=== PATIENT | female | born 1950 | race Caucasian/White ===

== ENCOUNTER 2016-10-16 15:39 | Outpatient (CLI) | payer MEDICARE, BC ==
--- NOTE | 2016-10-16 17:54 | CT Report ---
EXAM: CT HEAD EXAM DATE: 10/16/2016 04:38 p.m. CLINICAL HISTORY: Headache, she feels she has an aneurysm. COMPARISON: None. TECHNIQUE: Multiaxial CT images were obtained from the foramen magnum to the vertex. IV contrast: Non e. Reformats: Coronal. In accordance with CT protocol optimization, one or more of the following dose reduction techniques w ere utilized for this exam: automated exposure control, adjustment of mA and/or KV based on patient s ize, or use of iterative reconstructive technique. FINDINGS: Parenchyma: No intraparenchymal hemorrhage. No evidence of mass, midline shift, or CT findings of inf arction. Maxwell-white differentiation is distinct. Large wedge-shaped area of encephalomalacia predomin antly affecting the left frontal lobe noted. Extraaxial Spaces: Normal for age. No subdural or epidural collections identified. Ventricles: Ex vacuo dilation of the left frontal horn. No midline shift is noted. Sinuses: Imaged paranasal sinuses, orbits, and mastoids show no significant abnormality. Bones: No evidence of fracture or calvarial defect. Other: No concerning aneurysms noted on this noncontrast enhanced head CT. IMPRESSION: 1. No acute intracranial abnormality. 2. 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 3. No aneurysm noted on this noncontrast enhanced CT. Patient may benefit from a contrast enhanced CT A or MRA on a non-emergent basis. [facility] Referring Provider Line: [phone] SITE ID: [id number]
== END 2016-10-16 15:40 | disposition home or self-care (01) ==
LOC: DI 15:39
PROVIDERS: ATTEND Nurse Practitioner Family
DX: G93.89 Other specified disorders of brain (principal)
CPT/HCPCS: 70450

== ENCOUNTER 2017-02-16 14:52 | Outpatient (CLI) | payer MEDICARE, BC ==
--- NOTE | 2017-02-17 16:00 | DEXA Report ---
DEXA SCAN: 02/16/2017 CLINICAL INDICATION: Postmenopausal. TECHNIQUE: Dual energy x-ray absorptiometry (DXA) was performed on a [facility] system. Regions measured are the AP spine, femoral neck, and, if needed, forearm. COMPARISON: None. In accordance with the International Society for Clinical Densitometry (ISCD) guidelines, data from previous exams may be reanalyzed using current recommendations and techniques. This is done to allow a more accurate basis for comparison with the current study. FINDINGS Data for the lumbar spine is as follows: REGION BMD (g/cm/cm) T-SCORE Z-SCORE L1 1.412 2.4 4.2 L2 1.641 3.7 5.5 L3 1.675 4.0 5.8 L4 1.573 3.1 5.0 TOTAL 1.579 3.3 5.2 NOTE: All evaluable vertebrae are used for classification. Data for the hip is as follows: REGION BMD (g/cm/cm) T-SCORE Z-SCORE Neck 1.176 1.0 2.6 TOTAL 1.279 2.2 3.6 NOTE: The femoral neck or total proximal femur, whichever is lowest, is used for classification. IMPRESSION: THE WHO CLASSIFICATION BASED ON THE INTERNATIONAL REFERENCE STANDARD IS NORMAL. THE FRACTURE RISK IS NOT INCREASED. RECOMMENDATION: Patients with diagnosis of osteoporosis or osteopenia should have regular bone mineral density assessment. For those eligible for Medicare, routine testing is allowed once every 2 years. Testing frequency can be increased for patients who have rapidly progressing disease or for those who are receiving medical therapy to restore bone mass. COMMENT: World Health Organization (WHO) definitions for osteoporosis and osteopenia: NORMAL BMD: T-score at -1.0 or higher, fracture risk is low. OSTEOPENIA BMD: T-score between -1.0 and -2.5, fracture risk is increased. OSTEOPOROSIS BMD: T-score at -2.5 or lower, fracture risk high. National Osteoporosis Foundation recommends: 1. Obtain adequate dietary calcium (at least 1200 mg per day) and vitamin D (400 -800 international units per day). 2. Participate, as appropriate, in regular weightbearing and muscle- strengthening exercise. 3. Avoid tobacco use and reduce alcohol and caffeine intake. 4. For more detailed information see the website at www.NOF.org. MTDD
== END 2017-02-16 14:53 | disposition home or self-care (01) ==
LOC: DI 14:52
PROVIDERS: ATTEND Nurse Practitioner Family
DX: Z13.820 Encounter for screening for osteoporosis (principal); N95.8 Other specified menopausal and perimenopausal disorders
CPT/HCPCS: 77080

== ENCOUNTER 2017-02-16 14:53 | Outpatient (CLI) | payer MEDICARE, BC ==
--- NOTE | 2017-02-19 08:52 | Mammography Report ---
DIGITAL SCREENING MAMMOGRAM: 02/16/2017 CLINICAL INDICATION: A 66-year-old nulliparous patient with history of benign biopsy, history of imp lants, for screening. TECHNIQUE: Routine CC and MLO projections were obtained of the breasts as well as bilateral implant displaced views. FINDINGS: The breasts again demonstrate heterogeneously dense fibroglandular parenchyma bilaterally. Coarse, typically benign calcifications are present. Bilateral subpectoral silicone implants are s table. No suspicious masses, clustered microcalcifications, or regions of architectural distortion a re identified. IMPRESSION: BENIGN FINDINGS. RECOMMENDATION: Routine annual screening unless otherwise clinically indicated. BIRADS CATEGORY 2 - BENIGN FINDINGS. STANDARD QUALIFYING STATEMENTS 1. This examination was reviewed with the aid of Computer-Aided Detection (CAD). 2. A negative or benign imaging report should not delay biopsy if clinically suspicious findings are present. Consider surgical consultation if warranted. More than 5% of cancers are not identified by i maging. 3. Dense breasts may obscure an underlying neoplasm. JOB #: [id number] EXT JOB #:[id number]
== END 2017-02-16 14:54 | disposition home or self-care (01) ==
LOC: DI 14:53
PROVIDERS: ATTEND Nurse Practitioner Family
DX: Z12.31 Encounter for screening mammogram for malignant neoplasm of breast (principal); Z98.82 Breast implant status
CPT/HCPCS: 77067

== ENCOUNTER 2017-07-14 11:27 | Outpatient (CLI) | payer MEDICARE, BC ==
[2017-07-14 18:02] LABS: T4 (THYROXINE) 9.06 ug/dL (6.09-12.23)
[2017-07-14 18:08] LABS: THYROID STIMULATING HORMONE 0.33 uIU/mL (0.34-5.60)
[2017-07-14 18:09] LABS: FREE T4 (FREE THYROXINE) 1.24 ng/dL (0.58-1.64)
== END 2017-07-14 11:28 | disposition home or self-care (01) ==
LOC: LAB.F 11:27
PROVIDERS: ATTEND Nurse Practitioner Family
DX: I10 Essential (primary) hypertension (principal); R53.83 Other fatigue; E06.3 Autoimmune thyroiditis; R63.5 Abnormal weight gain
CPT/HCPCS: 36415; 84436; 84439; 84443; 84481; 86376; 86800

== ENCOUNTER 2017-08-26 15:00 | Outpatient (CLI) | payer MEDICARE, BC ==
--- NOTE | 2017-08-26 17:50 | Ultrasound Report ---
THYROID ULTRASOUND: 08/26/2017 INDICATION: Hypothyroidism, fullness of left lobe on physical examination. TECHNIQUE: Real-time scanning was performed with food service sales representatives static images obtained. FINDINGS: The right lobe of the thyroid measures 2.4 x 1.0 x 0.9 cm, and the left lobe measures 2.5 x 0.6 x 0.5 cm. The isthmus measures 1 mm. There is a 9 mm x 5 mm x 4 mm cyst in the posterior right lobe. There is a 2 mm x 2 mm x 1 mm echogenic nodule in the central portion of the left lobe. No adenopathy is appreciated. IMPRESSION: DIMINUTIVE THYROID, WITH A SMALL CYST ON THE RIGHT AND A TINY ECHOGENIC NODULE ON THE LEFT. NO SUSPICIOUS THYROID NODULE WAS IDENTIFIED. NO ADENOPATHY. TD: 08/26/2017 17:49 ARIELLE
== END 2017-08-26 15:01 | disposition home or self-care (01) ==
LOC: DI 15:00
PROVIDERS: ATTEND Registered Nurse
DX: E04.2 Nontoxic multinodular goiter (principal); E03.9 Hypothyroidism, unspecified
CPT/HCPCS: 76536

== ENCOUNTER 2017-10-15 14:23 | Outpatient (CLI) | payer MEDICARE, BC ==
--- NOTE | 2017-10-16 05:45 | XRAY Report ---
Procedure Date: 10/15/2017 Accession Number: [id number] / [id number] Procedure: XRS - Lumbar Spine 2 View CPT Code: FULL RESULT: EXAM: Lumbar Spine 2 View DATE: 10/15/2017 2:39 PM CLINICAL HISTORY: BACK PAIN COMPARISON: 09/03/2009 TECHNIQUE: 3 views. FINDINGS: Alignment: Minimal degenerative scoliosis of the thoracolumbar junction. Bones: Five gnc-elj-wzirbeb lumbar vertebral bodies are present. No fractures or bone lesions. Disks: Degenerative disc disease, worst at T12-L1. Facets: Mild facet arthropathy. Sacroiliac Joints: Unremarkable. Soft Tissues: Normal. The visualized bowel gas pattern is normal. IMPRESSION: Degenerative changes, with mild degenerative scoliosis. No evidence of compression fracture. [facility]
== END 2017-10-15 14:24 | disposition home or self-care (01) ==
LOC: DI.S 14:23
PROVIDERS: ATTEND Registered Nurse
DX: M47.896 Other spondylosis, lumbar region (principal); M51.36 Other intervertebral disc degeneration, lumbar region; M51.35 Other intervertebral disc degeneration, thoracolumbar region; M41.85 Other forms of scoliosis, thoracolumbar region
CPT/HCPCS: 72100

== ENCOUNTER 2018-03-11 12:59 | Outpatient (CLI) | payer MEDICARE, OTHER ==
--- NOTE | 2018-03-11 16:33 | Mammography Report ---
Reason: IMPLANTS, NIPPLE TENDERNESS - BILAT Procedure Date: 03/11/2018 Accession Number: [id number] / [id number] Procedure: LUIS - Diagnostic Dig Bilat CPT Code: FULL RESULT: EXAM: Diagnostic Dig Bilat DATE: 03/11/2018 1:42 PM CLINICAL HISTORY: 68 year-old on hormone replacement with six-month history of bilateral breast pain greatest in the nipple regions. History of bilateral implants and a benign breast biopsy (unsure which side). No reported personal or family history of breast cancer TECHNIQUE: Bilateral CC and MLO views were obtained. Real-time bilateral ultrasound is performed by both the technologist and radiologist. COMPARISON: 02/16/2017 through 04/04/2012 FINDINGS: The breasts demonstrate heterogeneously dense fibroglandular parenchyma bilaterally. There are intact subpectoral saline implants with moderate capsular calcification bilaterally. There are no suspicious masses, calcifications or areas of distortion bilaterally. There is no mammographic finding in either breast to correlate with the bilateral breast pain, greatest at the nipple. Ultrasound findings: Bilateral breast ultrasound is performed to the nipple and periareolar breast at both technologist and radiologist. Only normal tissues are noted. At the time of imaging exam, patient is noted to have moderate diffuse breast tenderness IMPRESSION: Bilateral symmetric breast pain consistent with physiologic pain. Stable imaging findings. Benign. BI-RADS Category 2 RECOMMENDATION: Routine annual screening unless otherwise clinically indicated. BI-RADS CATEGORY 2: Benign findings STANDARD QUALIFYING STATEMENTS: 1. This examination was not reviewed with the aid of Computer-Aided Detection (CAD). 2. A negative or benign imaging report should not preclude biopsy if clinically suspicious findings are present. 3. Dense breasts may obscure an underlying neoplasm. 4. This examination was reviewed with the aid of 3D breast imaging (tomosynthesis).
== END 2018-03-11 13:00 | disposition home or self-care (01) ==
LOC: DI 12:59
PROVIDERS: ATTEND Registered Nurse
DX: N64.4 Mastodynia (principal); Z98.82 Breast implant status
CPT/HCPCS: 76642; 77066

== ENCOUNTER 2019-11-18 11:49 | Outpatient (CLI) | payer MEDICARE, OTHER ==
[2019-11-18] MEDS ORDERED: IOVERSOL 320 100 ML VIAL IVP ONE ×2 (12:05→14:53)
[2019-11-18] MEDS ORDERED: IOVERSOL 320 50 ML VIAL ONE (12:05)
[2019-11-18] MEDS ORDERED: IOVERSOL 320 50 ML VIAL PO ONE (14:53)
--- NOTE | 2019-11-18 17:03 | CT Report ---
PROCEDURE: Abdomen/Pelvis W INDICATIONS: LT LOWER QUAD PAIN CONTRAST: IV CONTRAST: Optiray 320 ml: 100 PO CONTRAST: Optiray 320 ml50 TECHNIQUE: After the administration of oral and intravenous contrast, 5 mm thick sections acquired from the diap hragms to the symphysis. 5 mm thick coronal and sagittal reformats were acquired. For radiation dos e reduction, the following was used: automated exposure control, adjustment of mA and/or kV accordin g to patient size. COMPARISON: None available. FINDINGS: Image quality: Excellent. ABDOMEN: Lung bases: Lung bases are clear. Heart size is normal. Solid organs: Liver and spleen are normal in size and enhancement. Gallbladder wall does not appear thickened. Biliary system is non dilated. Pancreas enhances normally. No adrenal nodules. Kidn eys demonstrate normal size and enhancement, without hydronephrosis. Peritoneum and bowel: In this patient with this given history, scrutiny is given to the left lower q uadrant and the sigmoid colon. Extensive sigmoid diverticulosis is seen. There is minimal wall thicke rex and hyperenhancement seen, as on series 3 image 62. Minimal surrounding inflammatory changes are seen. No free air or significant free fluid can be seen. No loculated abscess is seen. Bowel loops demonstrate normal wall thickness and caliber. A normal appendix is incidentally noted . Nodes and vessels: No retroperitoneal or mesenteric adenopathy by size criteria. Aorta and inferior vena cava are normal in size. Miscellaneous: No ventral hernias. PELVIS: Genitourinary: Bladder wall thickness is normal. The uterus is atrophic versus partially removed. N o adnexal masses are seen on either side. Miscellaneous: No inguinal hernias or adenopathy. Bones: No suspicious bony lesions. No vertebral body compression fractures. Mild dextroconvex scol iotic curvature is seen. Age-appropriate degenerative changes are seen. IMPRESSION: Mild sigmoid diverticulitis, without findings of perforation or abscess. Reviewed by: Isrrael Vinson MD on 11/18/2019 4:02 PM [facility] Approved by: Isrrael Vinson MD on 11/18/2019 4:02 PM [facility] Station ID: [id number]
== END 2019-11-18 11:50 | disposition home or self-care (01) ==
LOC: DI 11:49
PROVIDERS: ATTEND Registered Nurse
DX: K57.32 Diverticulitis of large intestine without perforation or abscess without bleeding (principal)
CPT/HCPCS: 74177; Q9967

== ENCOUNTER 2020-07-14 08:00 | Outpatient (CLI) | payer MEDICARE, OTHER ==
--- NOTE | 2020-07-14 16:27 | XRAY Report ---
PROCEDURE: Knee 3 View RT INDICATIONS: RIGHT KNEE PAIN TECHNIQUE: 3 views of the right knee(s) were acquired. COMPARISON: None. FINDINGS: Bones: No fractures or dislocations. No suspicious bony lesions. Soft tissues: No joint effusion. No suspicious soft tissue calcifications. IMPRESSION: No acute fracture. No osseous lesion. If symptoms and/or clinical suspicion for patholog y continue, further assessment with repeat plain films, or advanced imaging (e.g., CT, MRI, or bone s can) is recommended for further assessment. Reviewed by: Lino Chino MD on 07/14/2020 4:26 PM PDT Approved by: Lino Chino MD on 07/14/2020 4:26 PM PDT Station ID: [id number]
== END 2020-07-14 23:59 | disposition home or self-care (01) ==
LOC: DI.S 08:00
PROVIDERS: ATTEND Physician Assistant Medical
DX: M25.561 Pain in right knee (principal)

== ENCOUNTER 2021-04-06 07:57 | Outpatient (CLI) | payer MEDICARE, OTHER ==
--- NOTE | 2021-04-06 16:58 | Ultrasound Report ---
PROCEDURE: Abdomen Complete INDICATIONS: ABD PAIN TECHNIQUE: Real-time scanning was performed of the abdominal and retroperitoneal organs, with image documentatio n. COMPARISON: CT abdomen pelvis 11/18/2019, ultrasound abdomen 02/26/2011. FINDINGS: Liver: Liver is normal in size and demonstrates no discrete hepatic mass. Gallbladder: No gallstones, gallbladder wall thickening, or pericholecystic fluid. Biliary ducts: Intrahepatic bile ducts are non-dilated. Extrahepatic bile duct caliber measures 2 m m. Normal is 6-7 mm or less in diameter, or 10 mm or less post-cholecystectomy. Pancreas: Visualized portions of the pancreas are sonographically normal. Spleen: Spleen is normal in size and homogeneous in echotexture. Kidneys: Right kidney measures 10.2 cm long; left kidney measures 11.2 cm long. No hydronephrosis o r definite mass. There is a small echogenic nonshadowing focus within the left kidney measuring up to 0.3 x 0.3 x 0.4 cm within the superior pole. Finding is nonspecific and may represent a possible non shadowing nonobstructing stone. Aorta: Visualized aorta is normal in caliber at less than 3 cm. Iliacs: Proximal common iliac arteries are normal in caliber at less than 2.5 cm. IVC: Intrahepatic inferior vena cava is patent. Miscellaneous: No free abdominal fluid. IMPRESSION: 1. No acute abdominal sonographic abnormality. 2. No evidence of cholelithiasis or cholecystitis. 3. Small nonspecific echogenic focus within the left kidney may represent a possible nonobstructing s tone. Reviewed by: Octavio Coles MD on 04/06/2021 3:57 PM [facility] Approved by: Octavio Coles MD on 04/06/2021 3:57 PM [place] Station ID: [id number]
== END 2021-04-06 07:58 | disposition home or self-care (01) ==
LOC: DI 07:57
PROVIDERS: ATTEND Nurse Practitioner
DX: R10.11 Right upper quadrant pain (principal); R10.30 Lower abdominal pain, unspecified

== ENCOUNTER 2021-07-03 08:00 | Outpatient (CLI) | payer MEDICARE, OTHER ==
--- NOTE | 2021-07-04 17:54 | XRAY Report ---
PROCEDURE: Hips 2V BILAT INDICATIONS: BILATERAL HIP PAIN TECHNIQUE: 2 views of the hip were acquired. COMPARISON: None available at time of interpretation. FINDINGS: Bones: No fractures or dislocations. No suspicious bony lesions. The visualized pelvic ring appear s intact. Moderate axial joint space narrowing with periarticular osteophyte formation. Soft tissues: No suspicious soft tissue calcifications or masses. IMPRESSION: Moderate symmetric hip joint degeneration. Reviewed by: JORGE Oliver on 07/04/2021 5:53 PM PST Approved by: De Horton MD on 07/04/2021 5:53 PM PST Station ID: [id number]
== END 2021-07-03 23:59 | disposition home or self-care (01) ==
LOC: DI.S 08:00
PROVIDERS: ATTEND Physician Assistant Medical
DX: M16.0 Bilateral primary osteoarthritis of hip (principal)

== ENCOUNTER 2021-10-15 14:42 | Outpatient (CLI) | payer MEDICARE, OTHER | END 2021-10-15 14:43 | disposition home or self-care (01) | LOC: RT 14:42 | PROVIDERS: ATTEND Internal Medicine | DX: Z01.810 Encounter for preprocedural cardiovascular examination (principal) | CPT/HCPCS: 93005 ==

== ENCOUNTER 2021-10-16 07:34 | Outpatient (CLI) | payer MEDICARE, OTHER ==
[2021-10-16 14:12] LABS: BASOPHILS # (AUTO) 0.1 10^3/uL (0.0-0.1); BASOPHILS % (AUTO) 1.3 %; EOSINOPHILS # (AUTO) 0.2 10^3/uL (0.0-0.7); EOSINOPHILS % (AUTO) 3.5 %; HCT - HEMATOCRIT 47.4 % (37.0-47.0); HGB - HEMOGLOBIN 15.9 g/dL (12.0-16.0); LYMPHOCYTES # (AUTO) 1.9 10^3/uL (1.5-3.5); LYMPHOCYTES % (AUTO) 32.4 %; MEAN CORPUSCULAR HEMOGLOBIN 30.3 pg (27.0-31.0); MEAN CORPUSCULAR HGB CONC 33.5 g/dL (32.0-36.0); MEAN CORPUSCULAR VOLUME 90.5 fL (81.0-99.0); MEAN PLATELET VOLUME 10.9 fL (7.9-10.8); MONOCYTES # (AUTO) 0.5 10^3/uL (0.0-1.0); MONOCYTES % (AUTO) 8.4 %; NEUTROPHILS # (AUTO) 3.2 10^3/uL (1.5-6.6); NEUTROPHILS % (AUTO) 53.9 %; PLT - PLATELET COUNT 226 10^3/uL (130-450); RED BLOOD COUNT 5.24 10^6/uL (4.20-5.40); RED CELL DISTRIBUTION WIDTH 11.4 % (12.0-15.0); WHITE BLOOD COUNT 5.9 x10^3/uL (4.8-10.8)
[2021-10-16 14:14] LABS: BILIRUBIN,URINE NEGATIVE (NEGATIVE); GLUCOSE, URINE (UA) NEGATIVE (NEGATIVE); KETONES,URINE (UA) NEGATIVE (NEGATIVE); LEUKOCYTE ESTERASE, URINE NEGATIVE (NEGATIVE); NITRITE,URINE NEGATIVE (NEGATIVE); OCCULT BLOOD,URINE NEGATIVE (NEGATIVE); PH,URINE 6.5 PH (5.0-7.5); PROTEIN,URINE NEGATIVE (NEGATIVE); UROBILINOGEN,URINE 0.2 (NORMAL) E.U./dL (NORMAL)
[2021-10-16 14:24] LABS: BACTERIA,URINE None Seen /HPF (None Seen); CLARITY,URINE CLEAR (CLEAR); RBC,URINE 0-5 /HPF (0-5); SQUAMOUS EPITHELIAL CELL,UR RARE Squamous (<= Few); WBC,URINE 0-3 /HPF (0-5)
[2021-10-16 14:35] LABS: ALBUMIN 4.2 g/dL (3.2-5.5); ALBUMIN/GLOBULIN RATIO 1.3 (1.0-2.2); ALKALINE PHOSPHATASE 62 IU/L (42-121); ALT ALANINE AMINOTRANSFERASE 14 IU/L (10-60); AST ASPARTATE AMINOTRANSFERASE 17 IU/L (10-42); BILIRUBIN,TOTAL 0.7 mg/dL (0.2-1.0); BUN - BLOOD UREA NITROGEN 18 mg/dL (6-20); CALCIUM 9.2 mg/dL (8.5-10.3); CARBON DIOXIDE - CO2 28 mmol/L (21-32); CHLORIDE 103 mmol/L (101-111); CHOL/HDL RATIO 4.7 (<4.4); CHOLESTEROL 331 mg/dL; CREATININE 0.9 mg/dL (0.4-1.0); GFR - MDRD 62 (>89); GLUCOSE 91 mg/dL (70-100); HDL CHOLESTEROL 70 mg/dL; LDL CHOLESTEROL,CALCULATED 243 mg/dL; LDL/HDL RATIO 3.5 (<4.4); SODIUM 138 mmol/L (135-145); TOTAL PROTEIN 7.4 g/dL (6.7-8.2); TRIGLYCERIDES 88 mg/dL; VLDL CHOLESTEROL 18 mg/dL
[2021-10-16 14:47] LABS: SLIDE REVIEW? Indicated
[2021-10-16 14:50] LABS: ESTIMATED AVERAGE GLUCOSE 111 mg/dL (70-100); HEMOGLOBIN A1c% 5.5 % (4.27-6.07)
[2021-10-16 15:22] LABS: PLATELET ESTIMATE, MANUAL NORMAL (130-450,000) (NORMAL); PLATELET MORPHOLOGY NORMAL APPEARANCE (NORMAL); RBC MORPHOLOGY (MULTIPLE) NORMAL APPEARANCE (NORMAL); WBC MORPHOLOGY (MULTIPLE) NORMAL APPEARANCE (NORMAL)
[2021-10-17 06:09] LABS: HCV AB <0.1 s/co ratio (0.0-0.9)
== END 2021-10-16 07:35 | disposition home or self-care (01) ==
LOC: LAB.S 07:34
PROVIDERS: ATTEND Internal Medicine
DX: Z01.812 Encounter for preprocedural laboratory examination (principal); E78.2 Mixed hyperlipidemia; N95.9 Unspecified menopausal and perimenopausal disorder; Z11.59 Encounter for screening for other viral diseases; Z13.1 Encounter for screening for diabetes mellitus
CPT/HCPCS: 36415; 80053; 80061; 81001; 83036; 83721; 84443; 85025; 85730; 86803; 87086; 87640

== ENCOUNTER 2022-04-28 15:50 | Outpatient (CLI) | payer MEDICARE, OTHER ==
[2022-04-28] MEDS ORDERED: DIATRIZOATE MEGLU/DIATRIZO SOD 30 ML BOTTLE PO ONE ×2 (16:18→20:17)
[2022-04-28] MEDS ORDERED: iohexoL-300 100 ML VIAL ONE (16:18)
[2022-04-28] MEDS ORDERED: iohexoL-300 100 ML VIAL IVP ONE (20:17)
--- NOTE | 2022-04-29 10:50 | CT Report ---
PROCEDURE: ABDOMEN/PELVIS W INDICATIONS: ABD PAIN CONTRAST: 100mL Omni 300 TECHNIQUE: After the administration of IV and oral contrast, 5 mm thick sections acquired from the diaphragms to the symphysis. 5 mm thick coronal and sagittal reformats were acquired. For radiation dose reducti on, the following was used: automated exposure control, adjustment of mA and/or kV according to noel ent size. COMPARISON: 11/18/2019 FINDINGS: Image quality: Excellent. ABDOMEN: Lung bases: Lung bases are clear. Heart size is normal. Solid organs: Liver and spleen are normal in size and enhancement. Gallbladder is decompressed. Bi liary system is non dilated. Pancreas enhances normally. No adrenal nodules. Kidneys demonstrate n ormal size and enhancement, without hydronephrosis. Peritoneum and bowel: There is moderate length segment, about 6 cm, of mid sigmoid colon which demon strates wall thickening, mild mucosal hyperemia, diverticula, and mild pericolonic inflammation with adjacent fascial thickening. There is no extraluminal gas or associated fluid collection. There is mi ldly increased quantity of solid stool throughout the colon proximal to this area. Small bowel, stoma ch, and appendix appear normal. Nodes and vessels: No retroperitoneal or mesenteric adenopathy by size criteria. Aorta and inferior vena cava are normal in size. Miscellaneous: No ventral hernias. PELVIS: Genitourinary: Bladder wall thickness is normal. The uterus is absent. Ovarian tissue was not ident ified. Miscellaneous: No inguinal hernias or adenopathy. Bones: No suspicious bony lesions. No vertebral body compression fractures. IMPRESSION: 1. Mild, acute uncomplicated sigmoid diverticulitis. This segment has been inflamed previously. When patient's current symptoms resolve, colonoscopy is recommended to exclude malignancy. Reviewed by: Althea Alvarez MD on 04/29/2022 10:49 AM PST Approved by: Althea Alvarez MD on 04/29/2022 10:49 AM PST Station ID: [id number]
== END 2022-04-28 15:51 | disposition home or self-care (01) ==
LOC: DI 15:50
PROVIDERS: ATTEND Registered Nurse
DX: K57.32 Diverticulitis of large intestine without perforation or abscess without bleeding (principal)
CPT/HCPCS: 74177; Q9963; Q9967

== ENCOUNTER 2022-06-11 10:41 | Outpatient (CLI) | payer MEDICARE, OTHER ==
--- NOTE | 2022-06-11 16:08 | XRAY Report ---
PROCEDURE: Shoulder 3 View LT INDICATIONS: LEFT SHOULDER PAIN TECHNIQUE: 3 views of the shoulder were acquired. COMPARISON: None. FINDINGS: Bones: No fractures or dislocations. No suspicious bony lesions. Visualized ribs appear intact. M ild periareolar articular osteophyte formation at the, clavicular and glenohumeral joints. Soft tissues: Calcification within the rotator cuff measuring roughly 20 mm diameter. IMPRESSION: 1. Osteoarthritis. 2. Calcific tendinitis of the rotator cuff. 3. No acute fracture. No osseous lesion. If symptoms and/or clinical suspicion for pathology continue , further assessment with repeat plain films, or advanced imaging (e.g., CT, MRI, or bone scan) is re commended for further assessment. Reviewed by: Lino Chino MD on 06/11/2022 4:07 PM [facility] Approved by: Lino Chino MD on 06/11/2022 4:07 PM [facility] Station ID: [id number]
== END 2022-06-11 10:42 | disposition home or self-care (01) ==
LOC: DI.S 10:41
PROVIDERS: ATTEND Physician Assistant
DX: M19.012 Primary osteoarthritis, left shoulder (principal); M75.32 Calcific tendinitis of left shoulder

== ENCOUNTER 2023-03-27 08:00 | Outpatient (CLI) | payer MEDICARE, OTHER ==
--- NOTE | 2023-03-27 14:20 | XRAY Report ---
PROCEDURE: Hip w/Pelvis 2-3V RT INDICATIONS: RIGHT HIP PAIN TECHNIQUE: AP pelvis with lateral view(s) of the right hip(s). COMPARISON: None. FINDINGS: Bones: No fractures or dislocations. Asymmetric moderate to severe right hip joint osteoarthritis is seen. No evidence of avascular necrosis of femoral head. No suspicious bony lesions. Soft tissues: No suspicious soft tissue calcifications or masses. IMPRESSION: No acute bony abnormality. Asymmetricmoderate to severe right hip joint osteoarthritis. No evidence of avascular necrosis. Reviewed by: De Horton MD on 03/27/2023 2:19 PM PST Approved by: De Horton MD on 03/27/2023 2:19 PM PST Station ID: [id number]
== END 2023-03-27 23:59 | disposition home or self-care (01) ==
LOC: DI.S 08:00
PROVIDERS: ATTEND Physician Assistant Medical
DX: M16.11 Unilateral primary osteoarthritis, right hip (principal)

== ENCOUNTER 2023-03-27 08:00 | Outpatient (CLI) | payer MEDICARE, OTHER | END 2023-03-27 23:59 | disposition home or self-care (01) | LOC: LAB.S 08:00 | PROVIDERS: ATTEND Physician Assistant Medical | DX: U07.1 COVID-19 (principal) ==

== ENCOUNTER 2023-03-28 12:48 | Outpatient (CLI) | payer MEDICARE, OTHER ==
[2023-03-28 13:22] LABS: CALCIUM 9.7 mg/dL (8.5-10.3); CREATININE 0.7 mg/dL (0.6-1.3); POTASSIUM 3.7 mmol/L (3.5-4.5)
== END 2023-03-28 12:49 | disposition home or self-care (01) ==
LOC: LAB 12:48
PROVIDERS: ATTEND Physician Assistant Medical
DX: U07.1 COVID-19 (principal)
CPT/HCPCS: 36415; 80048

== ENCOUNTER 2023-04-22 07:11 | Outpatient (CLI) | payer MEDICARE, OTHER ==
[2023-04-22 14:44] LABS: BASOPHILS % (AUTO) 0.6 %; EOSINOPHILS # (AUTO) 0.1 10^3/uL (0.0-0.7); EOSINOPHILS % (AUTO) 2.5 %; HCT - HEMATOCRIT 43.3 % (37.0-47.0); HGB - HEMOGLOBIN 13.5 g/dL (12.0-16.0); LYMPHOCYTES # (AUTO) 1.6 10^3/uL (1.5-3.5); LYMPHOCYTES % (AUTO) 30.5 %; MEAN CORPUSCULAR HEMOGLOBIN 29.2 pg (27.0-31.0); MEAN CORPUSCULAR HGB CONC 31.2 g/dL (32.0-36.0); MEAN CORPUSCULAR VOLUME 93.7 fL (81.0-99.0); MEAN PLATELET VOLUME 11.6 fL (7.9-10.8); MONOCYTES # (AUTO) 0.5 10^3/uL (0.0-1.0); MONOCYTES % (AUTO) 9.9 %; NEUTROPHILS # (AUTO) 2.9 10^3/uL (1.5-6.6); NEUTROPHILS % (AUTO) 56.1 %; PLT - PLATELET COUNT 181 10^3/uL (130-450); RED BLOOD COUNT 4.62 10^6/uL (4.20-5.40); RED CELL DISTRIBUTION WIDTH 12.4 % (12.0-15.0); WHITE BLOOD COUNT 5.2 x10^3/uL (4.8-10.8)
[2023-04-22 15:12] LABS: THYROID STIMULATING HORMONE 0.79 uIU/mL (0.34-5.60)
[2023-04-22 15:17] LABS: FERRITIN 36.1 ng/mL (11.0-306.8)
[2023-04-22 15:28] LABS: ALBUMIN 3.9 g/dL (3.2-5.5); ALBUMIN/GLOBULIN RATIO 1.7 (1.0-2.2); ALKALINE PHOSPHATASE 56 IU/L (42-121); ALT ALANINE AMINOTRANSFERASE 11 IU/L (10-60); AST ASPARTATE AMINOTRANSFERASE 14 IU/L (10-42); BILIRUBIN,TOTAL 0.5 mg/dL (0.2-1.0); BUN - BLOOD UREA NITROGEN 18 mg/dL (6-20); CALCIUM 8.6 mg/dL (8.5-10.3); CARBON DIOXIDE - CO2 24 mmol/L (21-32); CHLORIDE 108 mmol/L (101-111); CHOLESTEROL 255 mg/dL; CREATININE 0.8 mg/dL (0.6-1.3); GFR - MDRD 71 (>89); GLUCOSE 90 mg/dL (74-104); HDL CHOLESTEROL 64 mg/dL; LDL CHOLESTEROL,CALCULATED 178 mg/dL; LDL/HDL RATIO 2.8 (<4.4); POTASSIUM 3.7 mmol/L (3.5-4.5); SODIUM 137 mmol/L (135-145); TOTAL PROTEIN 6.2 g/dL (6.4-8.9); TRIGLYCERIDES 66 mg/dL (48-352); VLDL CHOLESTEROL 13 mg/dL
== END 2023-04-22 07:12 | disposition home or self-care (01) ==
LOC: LAB.S 07:11
PROVIDERS: ATTEND Internal Medicine
DX: E03.9 Hypothyroidism, unspecified (principal); I63.9 Cerebral infarction, unspecified; E78.5 Hyperlipidemia, unspecified; Z13.9 Encounter for screening, unspecified; F32.A Depression, unspecified; G25.81 Restless legs syndrome
CPT/HCPCS: 36415; 80053; 80061; 82306; 82728; 83721; 84443; 85025

== ENCOUNTER 2023-05-07 08:00 | Outpatient (CLI) | payer MEDICARE, OTHER ==
[2023-05-07 20:08] LABS: BILIRUBIN,URINE NEGATIVE (NEGATIVE); CLARITY,URINE CLOUDY (CLEAR); GLUCOSE, URINE (UA) NEGATIVE (NEGATIVE); KETONES,URINE (UA) NEGATIVE (NEGATIVE); LEUKOCYTE ESTERASE, URINE SMALL (NEGATIVE); NITRITE,URINE NEGATIVE (NEGATIVE); OCCULT BLOOD,URINE NEGATIVE (NEGATIVE); PH,URINE 5.5 PH (5.0-7.5); PROTEIN,URINE NEGATIVE (NEGATIVE); UROBILINOGEN,URINE 0.2 (NORMAL) E.U./dL (NORMAL)
[2023-05-07 20:16] LABS: AMORPHOUS SEDIMENT,UR Moderate /LPF; BACTERIA,URINE Many /HPF (None Seen); RBC,URINE 0-5 /HPF (0-5); SQUAMOUS EPITHELIAL CELL,UR FEW Squamous (<= Few)
== END 2023-05-07 23:59 | disposition home or self-care (01) ==
LOC: LAB.S 08:00
PROVIDERS: ATTEND Internal Medicine
DX: R39.9 Unspecified symptoms and signs involving the genitourinary system (principal)
CPT/HCPCS: 81001; 87086

== ENCOUNTER 2023-05-17 11:47 | Outpatient (CLI) | payer MEDICARE, OTHER ==
[2023-05-17] MEDS ORDERED: DIATRIZOATE MEGLU/DIATRIZO SOD 30 ML BOTTLE PO ONE ×2 (12:03→13:36)
[2023-05-17] MEDS ORDERED: iohexoL-300 100 ML VIAL ONE (12:03)
[2023-05-17] MEDS ORDERED: iohexoL-300 100 ML VIAL IVP ONE (13:36)
--- NOTE | 2023-05-17 16:02 | CT Report ---
PROCEDURE: Abdomen/Pelvis W INDICATIONS: RIGHT LOWER QUAD ABD PAIN CONTRAST: OMNI 300 100ML TECHNIQUE: After the administration of intravenous contrast, a CT scan of the abdomen and pelvis was performed. Images were recorded and evaluated at appropriate window settings. Reformats: coronal and sagittal. F or radiation dose reduction, the following was used: automated exposure control, adjustment of mA and /or kV according to patient size. COMPARISON: CT abdomen pelvis 04/28/2022 FINDINGS: Image quality: Excellent. Lung bases and heart: Unremarkable. Liver: No solid mass. Gallbladder and biliary tree: No radiopaque stones or wall thickening. No biliary dilation. Spleen: No splenomegaly. Pancreas: No pancreatic ductal dilation. Adrenals: No adrenal nodule. Kidneys and ureters: No hydronephrosis. No renal cystic lesion which requires follow up. No solid mas s. Bowel and peritoneum: No bowel distension. No pathologic free fluid. Diverticulosis without evidence of diverticulitis. Normal appendix. Lymph nodes: No central or retroperitoneal adenopathy. Vessels: No infrarenal aortic aneurysm. Atherosclerotic vascular calcifications. PELVIS Reproductive organs: Unremarkable. Bladder: No abnormal wall thickening, accounting for underdistention. Pelvic lymph nodes: No pelvic adenopathy by size criteria. Bones: No aggressive osseous abnormality. Degenerative changes of the spine. Other: No significant ventral or inguinal hernia. IMPRESSION: 1.No acute findings within the abdomen or pelvis to explain patient's symptoms. 2.Diverticulosis without evidence of acute diverticulitis. 3.Normal appendix. Reviewed by: Jan Galo MD on 05/17/2023 4:01 PM PST Approved by: Jan Galo MD on 05/17/2023 4:01 PM PST Station ID: [id number]
== END 2023-05-17 11:48 | disposition home or self-care (01) ==
LOC: DI 11:47
PROVIDERS: ATTEND Internal Medicine
DX: R10.31 Right lower quadrant pain (principal); K57.30 Diverticulosis of large intestine without perforation or abscess without bleeding
CPT/HCPCS: 74177; Q9963; Q9967

== ENCOUNTER 2023-06-03 13:17 | Outpatient (CLI) | payer MEDICARE, OTHER ==
--- NOTE | 2023-06-04 08:50 | XRAY Report ---
PROCEDURE: Shoulder 2+V LT INDICATIONS: SHOULDER JOINT PAIN,LEFT TECHNIQUE: 3 views of the shoulder were acquired. COMPARISON: X-ray left shoulder, 06/11/2022. FINDINGS: Bones: No fractures or dislocations. No suspicious bony lesions. Mild acromioclavicular and glenohu meral joint degeneration. Superior migration of humeral head. Visualized ribs appear intact. Soft tissues: No suspicious soft tissue calcifications. Calcific densities over the humeral head com patible with rotator cuff calcific tendinitis. Compared to the last exam , consultation has decreased . IMPRESSION: 1. Superior migration of humeral head suggesting chronic rotator cuff tendon tear. 2. Rotator cuff calcific tendinitis. 3. Mild osteoarthritic changes in acromioclavicular and glenohumeral joint. Reviewed by: Blayne Lockett MD on 06/04/2023 8:48 AM PST Approved by: Blayne Lockett MD on 06/04/2023 8:48 AM PST Station ID: [id number]
== END 2023-06-03 13:18 | disposition home or self-care (01) ==
LOC: DI.S 13:17
PROVIDERS: ATTEND Internal Medicine
DX: M67.814 Other specified disorders of tendon, left shoulder (principal); M19.012 Primary osteoarthritis, left shoulder; R93.6 Abnormal findings on diagnostic imaging of limbs; R93.89 Abnormal findings on diagnostic imaging of other specified body structures

== ENCOUNTER 2023-06-24 08:14 | Outpatient (CLI) | payer MEDICARE, OTHER ==
--- NOTE | 2023-06-24 13:22 | MRI Report ---
PROCEDURE: Pelvis WO INDICATIONS: RIGHT HIP PAIN TECHNIQUE: Noncontrast coronal T1 spin echo, STIR, and T2 HASTE with and without fat saturation; axial T1 spin e cho, STIR, and T2 HASTE, and sagittal T1 spin echo and T2 HASTE through the bony pelvis. COMPARISON: CT abdomen/pelvis 05/17/2023, right hip radiographs 03/27/2023 FINDINGS: Image quality: Excellent. Bones and joints: Bone marrow of the pelvic ring and proximal femurs show normal signal throughout. No intraosseous lesions or fractures. No avascular necrosis of the femoral heads. Multilevel degen erative disease and facet hypertrophy are seen in the included lumbar spine. Tendons: Mild distal gluteus medius and minimus tendinosis bilaterally. The iliopsoas tendon appear s intact, without adjacent bursal fluid collections. The origins of the hamstring tendons demonstrat e mild tendinosis. The tendons for the direct and indirect heads of the rectus femoris muscle appear intact. Hip joints: Large field of view images demonstrate no avascular necrosis of the femoral heads. Chantelle re joint space narrowing is seen at the superior aspect of the right hip with subchondral cystic hyde ges and subchondral edema as well as marginal osteophyte formation. There is a moderate to severe deg enerative changes of the left hip. Small bilateral hip effusions are present. Soft tissues: Visualized muscles demonstrate normal bulk and internal signal. The proximal sciatic neurovascular bundle appears normal adjacent to the hamstring tendons. Numerous diverticula are seen in the colon. IMPRESSION: 1.Severe right and moderate to severe left hip osteoarthrosis. 2.Mild distal gluteus medius and minimus tendinosis bilaterally. 3.Mild tendinosis of the proximal hamstring tendons bilaterally. 4.Degenerative changes are seen in the included lumbar spine. 5.Colonic diverticulosis. Reviewed by: Lazaro Odell MD on 06/24/2023 1:20 PM PST Approved by: Lazaro Odell MD on 06/24/2023 1:20 PM PST Station ID: [id number]
== END 2023-06-24 08:15 | disposition home or self-care (01) ==
LOC: DI 08:14
PROVIDERS: ATTEND Internal Medicine
DX: M16.0 Bilateral primary osteoarthritis of hip (principal); M67.854 Other specified disorders of tendon, left hip; M67.853 Other specified disorders of tendon, right hip; M67.88 Other specified disorders of synovium and tendon, other site; M47.816 Spondylosis without myelopathy or radiculopathy, lumbar region; K57.30 Diverticulosis of large intestine without perforation or abscess without bleeding

== ENCOUNTER 2023-07-08 14:15 | Outpatient (CLI) | payer MEDICARE, OTHER ==
--- NOTE | 2023-07-08 20:26 | XRAY Report ---
PROCEDURE: Knee 3V BL INDICATIONS: BILATERAL KNEE PAIN TECHNIQUE: 3 views of the knee was obtained. COMPARISON: None FINDINGS: Bones: No fractures or dislocations. No suspicious bony lesions. Mild medial compartment joint spac e narrowing Soft tissues: No knee joint effusion. No suspicious soft tissue calcifications or masses. IMPRESSION: Mild medial compartment joint space narrowing Reviewed by: Derrell Ponce MD on 07/08/2023 7:25 PM [place] Approved by: Derrell Ponce MD on 07/08/2023 7:25 PM [place] Station ID: [id number]
== END 2023-07-08 14:16 | disposition home or self-care (01) ==
LOC: DI.S 14:15
PROVIDERS: ATTEND Internal Medicine
DX: M25.561 Pain in right knee (principal); M25.562 Pain in left knee; M25.862 Other specified joint disorders, left knee; M25.861 Other specified joint disorders, right knee

== ENCOUNTER 2023-08-28 08:56 | Outpatient (CLI) | payer MEDICARE, OTHER ==
--- NOTE | 2023-08-28 21:06 | Ultrasound Report ---
PROCEDURE: Abdomen Limited INDICATIONS: ABD PAIN TECHNIQUE: Real-time focused scanning was performed of the abdomen, with image documentation. COMPARISONS: None. FINDINGS: There is no sonographic evidence for inguinal hernia within the right lower quadrant in the area esequiel cated by the patient. IMPRESSION: No sonographic evidence for right inguinal hernia. Reviewed by: Denise Wilson MD on 08/28/2023 9:05 PM PDT Approved by: Denise Wilson MD on 08/28/2023 9:05 PM PDT Station ID: [id number]
--- NOTE | 2023-08-28 21:06 | Ultrasound Report ---
PROCEDURE: Carotid Doppler Complete INDICATIONS: CAROTID ATHEROSCLEROSIS TECHNIQUE: Color and pulse Doppler interrogation was performed of both carotid systems, with image documentation and velocity measurements. COMPARISON: None. FINDINGS: Right side: Brachial blood pressure: 116/53 mm Hg. Common carotid artery peak systolic velocity: 98 cm/sec. Internal carotid artery peak systolic velocity: 107 cm/sec. Internal carotid artery end diastolic velocity: 44 cm/sec. External carotid artery peak systolic velocity: 109 cm/sec. ICA/CCA peak systolic ratio: 1.0 . Maxwell scale imaging description: Very mild atheromatous plaque is present at the carotid bulb. Percent internal carotid artery stenosis: Less than 50%. Vertebral artery: Flow direction is antegrade. Left side: Brachial blood pressure: 138/62 mm Hg. Common carotid artery peak systolic velocity: 75 cm/sec. Internal carotid artery peak systolic velocity: 88 cm/sec. Internal carotid artery end diastolic velocity: 13 cm/sec. External carotid artery peak systolic velocity: 95 cm/sec. ICA/CCA peak systolic ratio: 1.1 . Maxwell scale imaging description: Atheromatous plaque and calcifications are present at the carotid bu lb. Percent internal carotid artery stenosis: Less than 50 percent stenosis. Vertebral artery: Flow direction is antegrade. IMPRESSION: 1. In the right internal carotid artery, there is less than 50 percent stenosis based on peak systoli c velocity criteria. 2. In the left internal carotid artery, there is less than 50 percent stenosis based on peak systolic velocity criteria. 3. Antegrade blood flow within the right vertebral artery. 4. Antegrade blood flow within the left vertebral artery. The estimate of stenosis included in the report of the imaging study was calculated using the [facility]-end orsed standards of carotid artery stenosis. Reviewed by: Denise Wilson MD on 08/28/2023 9:04 PM PDT Approved by: Denise Wilson MD on 08/28/2023 9:04 PM PDT Station ID: [id number]
== END 2023-08-28 08:57 | disposition home or self-care (01) ==
LOC: DI 08:56
PROVIDERS: ATTEND Internal Medicine
DX: I65.23 Occlusion and stenosis of bilateral carotid arteries (principal); R10.9 Unspecified abdominal pain
CPT/HCPCS: 93880